=== PATIENT | male | born 1985 | race American Indian/Alaskan Native ===

== ENCOUNTER 2017-02-24 16:18 | Emergency (ER) | payer OTHER ==
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
[2017-02-25 01:27] VITALS: BP 145/94
== END 2017-02-25 01:28 | disposition home or self-care (01) ==
LOC: ED 16:18
DX: S16.1XXA Strain of muscle, fascia and tendon at neck level, initial encounter (principal); M54.6 Pain in thoracic spine; V43.52XA Car driver injured in collision with other type car in traffic accident, initial encounter; Y93.89 Activity, other specified; Y99.8 Other external cause status; Y92.89 Other specified places as the place of occurrence of the external cause
CPT/HCPCS: 99282

== ENCOUNTER 2017-02-27 22:00 | Emergency (ER) | payer SELFPAY ==
[2017-02-28 02:19] VITALS: BP 148/93
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
== END 2017-02-28 06:17 | disposition home or self-care (01) ==
LOC: ED 22:00
DX: M79.1 Myalgia (principal); V49.49XA Driver injured in collision with other motor vehicles in traffic accident, initial encounter; Y93.9 Activity, unspecified; Y92.9 Unspecified place or not applicable; Y99.9 Unspecified external cause status
CPT/HCPCS: 72040; 72072; 99283

== ENCOUNTER 2020-08-18 19:00 | Emergency (ER) | payer SELFPAY | END 2020-08-18 20:20 | disposition left against medical advice (07) | LOC: ED 19:00 | DX: R51.9 Headache, unspecified (principal); Z53.21 Procedure and treatment not carried out due to patient leaving prior to being seen by health care provider ==